=== PATIENT | female | born 1965 | race Caucasian/White ===

== ENCOUNTER 2016-06-02 06:14 | Emergency (ER) | payer BC ==
[~2016-06-02] VITALS: Ht 154.9 cm; Wt 94.8 kg
[~2016-06-02 06:14] MED LIST: AZIT250T PO; BUPR150T8; PARO-18 PO
[2016-06-02 06:16] VITALS: Ht 154.9 cm; Wt 94.8 kg
--- OUTSIDE RECORDS SUMMARY | 2016-06-02 06:17 | XMS REPORT | Referral Summary ---
Author Author [facility] Organization [facility] Address Unknown Phone Unavailable Care Team Providers Care Educational Manager Name Role Phone Akbar Drummond Primary Care Physician [phone] Encounter Date(s): 12/12/15 - 12/12/15 [facility] [address] [place] [address] Discharge Diagnosis: Chronic pain of right knee Discharge Diagnosis: Physical exam, pre-employment Discharge Diagnosis: Anxiety and depression Discharge Diagnosis: Screening for tuberculosis Discharge Disposition: 01-Home or Self Care Attending Physician: Mary Zaldivar PA-C Admitting Physician: Mary Zaldivar PA-C Vital Signs Most recent to 1 oldest [Reference Range]: Peripheral Pulse 64 bpm Rate [60-100 bpm] (12/12/15 4:11 PM) Respiratory Rate 18 br/min [14-20 br/min] (12/12/15 4:11 PM) Blood Pressure 122/82 mmHg [90-140/60-90 mmHg] (12/12/15 4:11 PM) Problem List Condition Effective Dates Status Health Status Informant Acute bacterial Active bronchitis(Confirmed ) Acute bacterial Active sinusitis(Confirmed) Benign essential Active hypertension(Confirm ed) Esotropia(Confirmed) Active high Resolved cholesterol(Confirme d) Hyperlipidemia(Confi Active rmed) hypertension(Confirm Resolved ed) Anxiety and Active depression(Confirmed ) Obesity(Confirmed) Active patient Patellofemoral Active syndrome(Confirmed) Allergies, Adverse Reactions, Alerts Substance Reaction Severity Status lisinopril Active PARoxetine Hydrochloride Active Medications Multiple Vitamins oral tablet, chewable 1 tabs, Chewed, Daily, # 100 tabs, 0 Refill(s) Start Date: 08/23/14 Status: Ordered Wellbutrin Oral, 0 Refill(s) Start Date: 11/15/15 Status: Ordered Results No data available for this section Immunizations Vaccine Date Refusal Reason influenza virus vaccine, inactivated1 11/29/13 influenza virus vaccine, live 01/14/13 pneumococcal 23-polyvalent vaccine 11/22/10 tetanus/diphtheria/pertussis, acel(Tdap) 03/30/09 1Result Comment: [11/29/2013] see scanned document Procedures No data available for this section Social History Social History Type Response Smoking Status Never smoker Assessment and Plan Extracted from: Title: Office Visit Note- Author: Mary Zaldivar PA-C Date: 12/12/15 Pre-employment physical Assessment/Plan Anxiety and depression This condition is stable at this time. No restrictions. Ordered: Periodic Comp Preventive Med 40 to 64 years Est 69028 Chronic pain of right knee D/w pt that I can inject the knee with a steroid if she would like. Can make another appt for this. Ordered: Periodic Comp Preventive Med 40 to 64 years Est 77303 Physical exam, pre-employment Paperwork was filled out.Pt is cleared for employment pending PPD test. Ordered: Periodic Comp Preventive Med 40 to 64 years Est 69373 Screening for tuberculosis PPDgiven today. She is to [facility] 48 hours to read. Ordered: Periodic Comp Preventive Med 40 to 64 years Est 13262
--- OUTSIDE RECORDS SUMMARY | 2016-06-02 06:17 | XMS REPORT | Referral Summary ---
Author Author [facility] Organization [facility] Address Unknown Phone Unavailable Care Team Providers Care Intern Name Role Phone Akbar Drummond Primary Care Physician [phone] Encounter VC Date(s): 01/11/16 - 01/11/16 [facility] [address] [place] [address] Discharge Diagnosis: Right knee pain Discharge Disposition: 01-Home or Self Care Attending Physician: Mary Zaldivar PA-C Admitting Physician: Mary Zaldivar PA-C Vital Signs Most recent to 1 oldest [Reference Range]: Peripheral Pulse 80 bpm Rate [60-100 bpm] (01/11/16 4:05 PM) Respiratory Rate 18 br/min [14-20 br/min] (01/11/16 4:05 PM) Blood Pressure 146/82 mmHg [90-140/60-90 mmHg] *HI* (01/11/16 4:05 PM) Problem List Condition Effective Dates Status [...] vaccine, inactivated1 11/29/13 influenza virus vaccine, live 12/6/13 pneumococcal 23-polyvalent vaccine 11/22/10 tetanus/diphtheria/pertussis, acel(Tdap) 03/30/09 1Result Comment: [11/29/2013] see scanned document Procedures Procedure Date Related Diagnosis Body Site Arthrocentesis, aspiration and/or injection, 01/11/16 major joint or bursa (eg, shoulder, hip, knee, subacromial bursa); without ultrasound guidance Social History Social History Type Response Smoking Status Never smoker Assessment and Plan Extracted from: Title: Office Visit Note- R knee Author: Mary Zaldivar PA-C Date: 01/11/16 inj Assessment/Plan Right knee pain Knee injection today. Pt advised to let me know if the injection does not help with the pain. The joint space was very small. Could try PT or get MRI. If this helps with pain, then can come back in to clinic in 3 months for another injection. Ordered: Arthro/Asp Major Joint Inj (Shoulder, Hip, Knee) 88783
--- OUTSIDE RECORDS SUMMARY | 2016-06-02 06:17 | XMS REPORT | Referral Summary ---
Author Author [facility] Organization [facility] Address Unknown Phone Unavailable Care Team Providers Care Wood Miller Name Role Phone Mariaelena Manjarrez Primary Care Physician [phone] Encounter VC Date(s): 08/30/14 - 08/30/14 [facility] [address] [place] [address] Discharge Disposition: 01-Home or Self Care Attending Physician: Juan Adair MD Admitting Physician: Juan Adair MD Vital Signs Most recent to 1 oldest [Reference Range]: Temperature Tympanic 37.6 degC [36.6-38.1 degC] (08/30/14 1:49 PM) Peripheral Pulse 88 bpm Rate [60-100 bpm] (08/30/14 1:49 PM) Respiratory Rate 18 br/min [14-20 br/min] (08/30/14 1:49 PM) Blood Pressure 126/80 mmHg [90-140/60-90 mmHg] (08/30/14 1:49 PM) Problem List Condition Effective Dates Status Health Status Informant Acute bacterial Active bronchitis(Confirmed ) Acute bacterial Active sinusitis(Confirmed) high Resolved cholesterol(Confirme d) hypertension(Confirm Resolved ed) Anxiety and Active depression(Confirmed ) Obesity(Confirmed) Active patient Allergies, Adverse Reactions, Alerts Substance Reaction Severity Status lisinopril Active PARoxetine Hydrochloride Active Medications buPROPion 150 mg/12 hours (SR) oral tablet, extended release See Instructions, TAKE ONE TABLET BY MOUTH TWICE DAILY, # 60 tabs, eRx: [id number], TAKE ONE TABLET BY MOUTH TWICE DAILY Start Date: 01/29/15 Status: Ordered Multiple Vitamins oral tablet, chewable 1 tabs, Chewed, Daily, # 100 tabs, 0 Refill(s) Start Date: 08/23/14 Status: Ordered omeprazole 20 mg oral delayed release tablet 20 mg 1 tabs, Oral, Daily, # 30 tabs, 1 Refill(s), Pharmacy: [id number], 1 tabs Oral Daily,x30 days Start Date: 08/30/14 Stop Date: 10/29/14 Status: Ordered Results No data available for this section Immunizations Vaccine Date Refusal Reason influenza virus vaccine, inactivated1 11/29/13 influenza virus vaccine, live 01/14/13 pneumococcal 23-polyvalent vaccine 11/22/10 tetanus/diphtheria/pertussis, acel(Tdap) 03/30/09 1Result Comment: [11/29/2013] see scanned document Procedures No data available for this section Social History Social History Type Response Smoking Status Never smoker Assessment and Plan Extracted from: Title: Office Visit Note Author: Juan Adair MD Date: 08/30/14 Assessment/Plan Chronic cough Plan: I am going to place U on Flonase one squirt each nostril daily.I am going to place you on omeprazole 20 mg daily. I want you to see Dr. Schmidt. I think at this point since Dulera has not improved her symptoms you can discontinue that. Orders: fluticasone nasal, 1 sprays, Nasal, BID, # 16 g, 1 Refill(s), Pharmacy : [id number] omeprazole, 20 mg 1 tabs, Oral, Daily, # 30 tabs, 1 Refill(s), Pharmacy: [facility], 1 tabs Oral Daily,x30 days
--- OUTSIDE RECORDS SUMMARY | 2016-06-02 06:17 | XMS REPORT | Continuity of Care Document ---
Author Author [facility] Organization [facility] Address Unknown Phone Unavailable Allergies Medications Problems Procedures Results Encounters ACCT No. Visit Date/Time Discharge Status Pt. Type Provider Facility Loc./Unit Complaint [id number] 04/07/2013 10:32:00 04/07/2013 23 :59:59 CLS Outpatient [id number] 04/01/2013 15:22:00 04/01/2013 23 :59:59 CLS Outpatient [id number] 01/14/2013 14:27:00 01/14/2013 23 :59:59 CLS Outpatient
--- OUTSIDE RECORDS SUMMARY | 2016-06-02 06:17 | XMS REPORT | Referral Summary ---
Author Author [facility] Organization [facility] Address Unknown Phone Unavailable Care Team Providers Care Conditioning Coach Name Role Phone BessytuAkbar guy Primary Care Physician [phone] Encounter VC Date(s): 12/06/14 - 12/06/14 [facility] [address] [place] [address] Discharge Diagnosis: Acute bacterial sinusitis Discharge Disposition: 01-Home or Self Care Attending Physician: Georgina Walton APRN Admitting Physician: Georgina Walton APRN Vital Signs Most recent to 1 oldest [Reference Range]: Temperature Tympanic 37.6 degC [36.6-38.1 degC] (12/06/14 1:45 PM) Peripheral Pulse 96 bpm Rate [60-100 bpm] (12/06/14 1:45 PM) Blood Pressure 138/84 mmHg [90-140/60-90 mmHg] (12/06/14 1:45 PM) Problem List Condition Effective Dates Status [...] mg/12 hours (SR) oral tablet, extended release 150 mg 1 tabs, Oral, BID, X 90 days, # 180 tabs, 1 Refill(s), Pharmacy: [id number], 1 tabs Oral BID,x90 days Start Date: 04/13/15 Stop Date: 10/10/15 Status: Ordered Multiple Vitamins oral tablet, chewable 1 tabs, Chewed, Daily, # 100 tabs, 0 Refill(s) Start Date: 08/23/14 Status: Ordered ProAir RespiClick 90 mcg/inh inhalation powder 2 puffs, Inhalation, q4hr, # 1 Each, 0 Refill(s), Pharmacy: [id number] Start Date: 04/13/15 Status: Ordered promethazine-codeine 6.25 mg-10 mg/5 mL oral syrup 5 mL, Oral, q6hr, as needed for cough, Fax to [facility], # 120 mL, 0 Refill(s) Start Date: 06/07/15 Status: Ordered Results No data available for this section Immunizations Vaccine Date Refusal Reason influenza virus vaccine, inactivated1 11/29/13 influenza virus vaccine, live 01/14/13 pneumococcal 23-polyvalent vaccine 11/22/10 tetanus/diphtheria/pertussis, acel(Tdap) 03/30/09 1Result Comment: [11/29/2013] see scanned document Procedures No data available for this section Social History Social History Type Response Smoking Status Never smoker Assessment and Plan Extracted from: Title: Office Visit Note-sinusitis Author: Georgina Walton DUCT CLEANER Date: 12/06/14 Assessment/Plan Acute bacterial sinusitis Patient counseled regarding diagnosis, natural history, pathophysiology, typical treatment, and expected results. Questions and concerns answered. There is no overlying erythema to suggest an associated cellulitis or abscess formation. Take antibiotics till complete. Mucinex twice a day as needed. Saline or Jose med nasal rinses twice a day may be helpful. Tylenol per package instructions for comfort. Afrin nasal spray twice a day x 3 days as needed may help open nasal passages Notify office if symptoms fail to improve. Ordered: Office Visit Level 3 Est 65589 Orders: amoxicillin-clavulanate, 1 tabs, Oral, q12hr, X 14 days, # 28 tabs, 0 Refill(s), Pharmacy: [id number]
--- OUTSIDE RECORDS SUMMARY | 2016-06-02 06:17 | XMS REPORT | Referral Summary ---
Author Author [facility] Organization [facility] Address Unknown Phone Unavailable Care Team Providers Care Marine Gear Keeper Name Role Phone Mariaelena Manjarrez Primary Care Physician [phone] Encounter Date(s): 04/03/15 - 04/03/15 [facility] [address] [place] [address] Discharge Diagnosis: Acute bacterial bronchitis Discharge Disposition: 01-Home or Self Care Attending Physician: Georgina Walton APRN Admitting Physician: Georgina Walton APRN Vital Signs Most recent to 1 oldest [Reference Range]: Temperature Tympanic 37.6 degC [36.6-38.1 degC] (04/03/15 2:34 PM) Apical Heart Rate 80 bpm [60-100 bpm] (04/03/15 2:34 PM) Blood Pressure 124/86 mmHg [90-140/60-90 mmHg] (04/03/15 2:34 PM) Problem List Condition Effective Dates Status [...] MOUTH TWICE DAILY, # 60 tabs, eRx: [id number], TAKE ONE TABLET BY MOUTH TWICE DAILY Start Date: 01/29/15 Status: Ordered Multiple Vitamins oral tablet, chewable 1 tabs, Chewed, Daily, # 100 tabs, 0 Refill(s) Start Date: 08/23/14 Status: Ordered Zithromax Z-Beka 250 mg oral tablet 1 packets, Oral, Daily, as directed on package labeling, X 5 days, # 6 tabs, 0 Refill(s), [facility], 1 packets Oral Daily,x5 days,Instr: as directed on package labeling Start Date: 04/03/15 Stop Date: 04/08/15 Status: Ordered Results No data available for this section Immunizations Vaccine Date Refusal Reason influenza virus vaccine, inactivated1 11/29/13 influenza virus vaccine, live 01/14/13 pneumococcal 23-polyvalent vaccine 11/22/10 tetanus/diphtheria/pertussis, acel(Tdap) 03/30/09 1Result Comment: [11/29/2013] see scanned document Procedures No data available for this section Social History Social History Type Response Smoking Status Never smoker Assessment and Plan Extracted from: Title: Office Visit Note-bronchitis Author: Georgina Walton APRN Date: 04/03/15 Assessment/Plan Acute bacterial bronchitis Zithromax 2 tabs today, then one tablet daily for 4 days. Increase fluid intake. Enc good handwashing. Recommend OTC mucinex per package instruction. Recommend OTC Tylenol and/or Ibuprofen per package instructions as needed for fever, pain, and body aches. No aspirin. Symptoms should improve over the next 1-2 weeks. If symptoms get worse, spikes fever, inc cough or shortness of breath to notify the office for further evaluation. I do not feel that any further extensive workup is indicated. However the patient is counseled that should new symptoms develop or the symptoms worsen, further evaluation and testing may be warranted as those symptoms declare themselves and that followup is of vital importance. Excuse note provided. Patient off work April 02 through April 04. Ordered: Office Visit Level 3 Est 20057 Orders: azithromycin, 1 packets, Oral, Daily, as directed on package labeling , X 5 days, # 6 tabs, 0 Refill(s), Pharmacy: [id number], 1 packets Oral Daily,x5 days,Instr:as directed on package labeling
--- OUTSIDE RECORDS SUMMARY | 2016-06-02 06:17 | XMS REPORT | Referral Summary ---
Author Author [facility] Organization [facility] Address Unknown Phone Unavailable Care Team Providers Care Rail Maintenance Worker Name Role Phone Akbar Drummond Primary Care Physician [phone] Encounter VC Date(s): 08/24/15 - 08/24/15 [facility] [address] [place] [address] Discharge Disposition: 01-Home or Self Care Attending Physician: Agustin Drummond MD Admitting Physician: Agustin Drumomnd MD Vital Signs Most recent to 1 oldest [Reference Range]: Blood Pressure 120/90 mmHg [90-140/60-90 mmHg] (08/24/15 1:32 PM) Problem List Condition Effective Dates Status [...] days, # 180 tabs, 1 Refill(s), Pharmacy: [id number], 1 tabs Oral BID,x90 days Start Date: 04/13/15 Stop Date: 10/10/15 Status: Ordered Multiple Vitamins oral tablet, chewable 1 tabs, Chewed, Daily, # 100 tabs, 0 Refill(s) Start Date: 08/23/14 Status: Ordered Physical therapy Physical therapy, See Instructions, Eval and treat as indicated for right knee pain., # 1 Each, 0 Refill(s) Start Date: 08/24/15 Status: Ordered Results No data available for this section Immunizations Vaccine Date Refusal Reason influenza virus vaccine, inactivated1 11/29/13 influenza virus vaccine, live 01/14/13 pneumococcal 23-polyvalent vaccine 11/22/10 tetanus/diphtheria/pertussis, acel(Tdap) 03/30/09 1Result Comment: [11/29/2013] see scanned document Procedures No data available for this section Social History Social History Type Response Smoking Status Never smoker Assessment and Plan Extracted from: Title: Ambulatory Patient Education Author: Agustin Drummond MD Date: Family Medicine Cholesterol Cholesterol is a white, waxy, fat-like substance needed by your body in small amounts. The liver makes all the cholesterol you need. Cholesterol is carried from the liver by the blood through the blood vessels. Deposits of cholesterol ( plaque) may build up on blood vessel elliott. These make the arteries narrower and stiffer. Cholesterol plaques increase the risk for heart attack and stroke. You cannot feel your cholesterol level even if it is very high. The only way to know it is high is with a blood test. Once you know your cholesterol levels, you should keep a record of the test results. Work with your health care provider to keep your levels in the desired range. WHAT DO THE RESULTS MEAN? Total cholesterol is a rough measure of all the cholesterol in your blood. LDL is the so-called bad cholesterol. This is the type that deposits cholesterol in the elliott of the arteries. You want this level to be low. HDL is the good cholesterol because it cleans the arteries and carries the LDL away. You want this level to be high. Triglycerides are fat that the body can either burn for energy or store. High levels are closely linked to heart disease. WHAT ARE THE DESIRED LEVELS OF CHOLESTEROL? Total cholesterol below 200. LDL below 100 for people at risk, below 70 for those at very high risk. HDL above 50 is good, above 60 is best. Triglycerides below 150. HOW CAN I LOWER MY CHOLESTEROL? Diet. Follow your diet programs as directed by your health care provider. Choose fish or white meat chicken and turkey, roasted or baked. Limit fatty cuts of red meat, fried foods, and processed meats, such as sausage and lunch meats. Eat lots of fresh fruits and vegetables. Choose whole grains, beans, pasta, potatoes, and cereals. Use only small amounts of olive, corn, or canola oils. Avoid butter, mayonnaise, shortening, or palm kernel oils. Avoid foods with trans fats. Drink skim or nonfat milk and eat low-fat or nonfat yogurt and cheeses. Avoid whole milk, cream, ice cream, egg yolks, and full-fat cheeses. Healthy desserts include tish food cake, thony snaps, animal crackers, hard candy, popsicles, and low-fat or nonfat frozen yogurt. Avoid pastries, cakes, pies, and cookies. Exercise. Follow your exercise programs as directed by your health care provider. A regular program helps decrease LDL and raise HDL. A regular program helps with weight control. Do things that increase your activity level like gardening, walking, or taking the stairs. Ask your health care provider about how you can be more active in your daily life. Medicine. Take medicine only as directed by your health care provider. Medicine may be prescribed by your health care provider to help lower cholesterol and decrease the risk for heart disease. If you have several risk factors, you may need medicine even if your levels are normal. This information is not intended to replace advice given to you by your health care provider. Make sure you discuss any questions you have with your health care provider. Document Released: 10/21/2001 Document Revised: 02/16/2015 Document Reviewed: [employer] Patient Information 2016 [employer]. No follow up information was provided. Extracted from: Title: Office Visit Note Author: Agustin Drummond MD Date: 08/24/15 Assessment/Plan Anxiety and depression This issue was reviewed, appears stable, and current therapy continued except as mentioned. Appropriate lab was reviewed from the most recent appropriate entry and lab was ordered if needed in the cpoe/nursing orders, and follow up recommended generally in 90 days and no later then six months. Benign essential hypertension This issue was reviewed, appears stable, and current therapy continued except as mentioned. Appropriate lab was reviewed from the most recent appropriate entry and lab was ordered if needed in the cpoe /nursing orders, and follow up recommended generally in 90 days and no later then six months. The patient reports their blood pressure has been stable at home and is not having any significant or related problems. There has been no chest pain, chest pressure, soa/love. IMPRESSION: Central reactive airway changes such as bronchitis with some minimal perihilar and bibasilar atelectatic infiltrates but no significant consolidations. [1] Hyperlipidemia This issue was reviewed, appears stable, and current therapy continued except as mentioned. Appropriate lab was reviewed from the most recent appropriate entry and lab was ordered if needed in the cpoe/nursing orders, and follow up recommended generally in 90 days and no later then six months. Knee pain Xray pending. Mobic 7.5mg po bid prn. Physical therapy script given and hand out given. The patient was offered and/or directed to a specialist for this issue. The patient refused or at least deferred any referral at this time. Ordered: XR Knee Complete Right Obesity Diet and exercise as tolerated and feasible. Consider medication when interested. Patellofemoral syndrome See above. Orders: Misc Medication, Physical therapy, See Instructions, Eval and treat as indicated for right knee pain., # 1 Each, 0 Refill(s)
--- OUTSIDE RECORDS SUMMARY | 2016-06-02 06:17 | XMS REPORT | Referral Summary ---
Author Author [facility] Organization [facility] Address Unknown Phone Unavailable Care Team Providers Care Instrument Man Name Role Phone Mariaelena Manjarrez Primary Care Physician [phone] Encounter VC Date(s): 08/23/14 - 08/23/14 [facility] [address] [place] [id number] Discharge Disposition: 01-Home or Self Care Attending Physician: Juan Adair MD Admitting Physician: Juan Adair MD Vital Signs Most recent to 1 oldest [Reference Range]: Temperature Tympanic 36.7 degC [36.6-38.1 degC] (08/23/14 10:30 AM) Peripheral Pulse 88 bpm Rate [60-100 bpm] (08/23/14 10:30 AM) Respiratory Rate 20 br/min [14-20 br/min] (08/23/14 10:30 AM) Blood Pressure 122/86 mmHg [90-140/60-90 mmHg] (08/23/14 10:30 AM) Problem List Condition Effective Dates Status Health [...] MOUTH TWICE DAILY, # 60 tabs, eRx: [id number], TAKE ONE TABLET BY MOUTH TWICE DAILY Start Date: 01/29/15 Status: Ordered Multiple Vitamins oral tablet, chewable 1 tabs, Chewed, Daily, # 100 tabs, 0 Refill(s) Start Date: 08/23/14 Status: Ordered omeprazole 20 mg oral delayed release tablet 20 mg 1 tabs, Oral, Daily, # 30 tabs, 1 Refill(s), Pharmacy: [id number], 1 tabs Oral Daily,x30 days Start Date: 08/30/14 Stop Date: 10/29/14 Status: Ordered Results Hematology Most recent to 1 oldest [Reference Range]: WBC [4.8-10.8 6.4 10*3/uL 10*3/uL] (08/23/14 11:03 AM) RBC [4.00-5.20 4.04 10*6/uL 10*6/uL] (08/23/14 11:03 AM) Hgb [12.0-16.0 11.8 gm/dL gm/dL] *LOW* (08/23/14: AM) Hct [37.0-47.0 %] 37.0 % (08/23/14 11:03 AM) MCV [82.0-99.0 fL] 91.6 fL (08/23/14: AM) MCH [27.0-32.0 pg] 29.2 pg (08/23/14:03 AM) MCHC [32.0-36.0 31.9 gm/dL gm/dL] *LOW* (08/23/14: AM) RDW [11.5-14.5 %] 14.0 % (08/23/14 11:03 AM) Platelet [150-400 210 10*3/uL 10*3/uL] (08/23/14 11:03 AM) MPV [8.8-14.8 fL] 12.9 fL (08/23/14 11:03 AM) Immature 0.2 % Granulocytes (08/23/14:03 AM) [0.0-1.0 %] Neutrophils [51-75 57 % %] (08/23/14 11:03 AM) Lymphocytes [20-46 29 % %] (08/23/14 11:03 AM) Monocytes [4-11 %] 8 % (08/23/14 11:03 AM) Eosinophils [0-4 %] 5 % *HI* (08/23/14: AM) Basophils [0-2 %] 1 % (08/23/14 11:03 AM) Neutro Absolute 3.62 10*3 [1.90-7.00 10*3] (08/23/14 11:03 AM) Lymph Absolute 1.89 10*3 [0.80-3.30 10*3] (08/23/14 11:03 AM) Schley Absolute 0.51 10*3 [0.30-1.00 10*3] (08/23/14 11:03 AM) Eos Absolute 0.33 10*3 [0.00-0.50 10*3] (08/23/14 11:03 AM) Baso Absolute 0.06 10*3 [0.00-0.20 10*3] (08/23/14 11:03 AM) Chemistry Most recent to 1 oldest [Reference Range]: TSH with Reflex Free 1.89 T4 [0.35-4.94] (08/23/14 11:03 AM) Immunizations Vaccine Date Refusal Reason influenza virus vaccine, inactivated1 11/29/13 influenza virus vaccine, live 01/14/13 pneumococcal 23-polyvalent vaccine 11/22/10 tetanus/diphtheria/pertussis, acel(Tdap) 03/30/09 1Result Comment: [11/29/2013] see scanned document Procedures Procedure Date Related Diagnosis Body Site Collection of venous blood by venipuncture 08/23/14 Social History Social History Type Response Smoking Status Never smoker Assessment and Plan Extracted from: Title: Office Visit Note Author: Juan Adair MD Date: 08/23/14 Assessment/Plan Cough Ordered: CBC w/ Differential XR Chest 2 Views Fatigue Plan: I gave you a sample of Dulera 100/5 to take 2 puffs twice a day. I'm also placing you on a prednisone taper. I wants to follow-up in one week. I ordered a CBC and lab. I will review that more morning. Ordered: TSH with Reflex Free T4 Orders: predniSONE, See Instructions, Take 6 tabs on day one and then decrease by one tablet daily until gone., # 21 tabs, 0 Refill(s), Pharmacy: [id number], Take 6 tabs on day one and then decrease by one tablet daily until gone.
--- OUTSIDE RECORDS SUMMARY | 2016-06-02 06:17 | XMS REPORT | Referral Summary ---
Author Organization Unknown Address Unknown Phone Unavailable Care Team Providers Care Library Page Name Role Phone Kitty Adair Primary Care Physician [phone] Encounter VC Date(s): 04/03/14 - 04/03/14 [facility] [address] [place] [address] Dr [place] [id number] Discharge Diagnosis: Sinusitis Discharge Disposition: Home or Self Care Attending Physician: Georgina Walton APRN Admitting Physician: Georgina Walton APRN Vital Signs Most recent to 1 oldest [Reference Range]: Temperature Tympanic 37.1 degC [36.6-38.1 degC] (04/03/14 3:30 PM) Peripheral Pulse 84 bpm Rate [60-100 bpm] (04/03/14 3:30 PM) Respiratory Rate 24 br/min [14-20 br/min] *HI* (04/03/14 3:30 PM) Blood Pressure 112/84 mmHg [90-140/60-90 mmHg] (04/03/14 3:30 PM) Problem List Condition Effective Dates Status Health Status Informant high Resolved cholesterol(Confirme d) hypertension(Confirm Resolved ed) Anxiety and Active depression(Confirmed ) Obesity(Confirmed) Active patient Allergies, Adverse Reactions, Alerts Substance Reaction Severity Status lisinopril Active PARoxetine Hydrochloride Active Medications Augmentin 875 mg-125 mg oral tablet 1 tabs, Oral, q12hr, X 14 days, # 28 tabs, 0 Refill(s), Pharmacy: [facility] Start Date: 04/03/14 Stop Date: 04/17/14 Status: Ordered buPROPion 150 mg/12 hours (SR) oral tablet, extended release See Instructions, TAKE ONE TABLET BY MOUTH TWICE DAILY, # 60 tabs, 3 Refill(s), eRx: [facility], TAKE ONE TABLET BY MOUTH TWICE DAILY Special Instructions: TAKE ONE TABLET BY MOUTH TWICE DAILY Start Date: 09/13/13 Status: Ordered Results No data available for [...] Extracted from: Title: Office Visit Note Author: Georgina Walton FOOD GENERAL MANAGER Date: 04/03/14 Assessment/Plan 1.Sinusitis Patient counseled regarding diagnosis, natural history, pathophysiology, typical treatment, and expected results. Questions and concerns answered. There is no overlying erythema to suggest an associated cellulitis or abscess formation. This does not appear to be originating from the teeth. There is no recent history of nasotracheal intubation to suggest a nosocomial sinusitis. The patient does not have disproportionate pain and is not immunocompromised or lethargic or systemically ill appearing to suggest rhinocerebral mucormycosis. The patient's discomfort and clinical findings are compatible with a diagnosis of sinusitis and not that of a subarachnoid hemorrhage or meningitis or temporal arteritis. Take antibiotics till complete. Mucinex twice a day as needed. Saline or Jose med nasal rinses twice a day may be helpful. Tylenol per package instructions for comfort. Afrin nasal spray twice a day x 3 days as needed may help open nasal passages Notify office if symptoms fail to improve. Ordered: Office Visit Level 3 Est 12202 Orders: amoxicillin-clavulanate, 1 tabs, Oral, q12hr, X 14 days, # 28 tabs, 0 Refill(s), Pharmacy: [id number]
--- OUTSIDE RECORDS SUMMARY | 2016-06-02 06:17 | XMS REPORT | Referral Summary ---
Author Author [facility] Organization [facility] Address Unknown Phone Unavailable Care Team Providers Care Material Clerk Name Role Phone Akbar Drummond Primary Care Physician [phone] Encounter VC Date(s): 04/13/15 - 04/13/15 [facility] [address] [place] [address] Discharge Disposition: 01-Home or Self Care Attending Physician: Agustin Drummond MD Admitting Physician: Agustin Drummond MD Vital Signs Most recent to 1 oldest [Reference Range]: Blood Pressure 140/90 mmHg [90-140/60-90 mmHg] (04/13/15 2:03 PM) Problem List Condition Effective Dates Status [...] days, # 180 tabs, 1 Refill(s), Pharmacy: [facility], 1 tabs Oral BID,x90 days Start Date: 04/13/15 Stop Date: 10/10/15 Status: Ordered Multiple Vitamins oral tablet, chewable 1 tabs, Chewed, Daily, # 100 tabs, 0 Refill(s) Start Date: 08/23/14 Status: Ordered ProAir RespiClick 90 mcg/inh inhalation powder 2 puffs, Inhalation, q4hr, # 1 Each, 0 Refill(s), Pharmacy: [facility] Start Date: 04/13/15 Status: Ordered Results No data available for [...] Patient Education Author: Agustin Drummond MD Date: 04/13/15 Allergy Cough, Adult A cough is a reflex that helps clear your throat and airways. It can help heal the body or may be a reaction to an irritated airway. A cough may only last 2 or 3 weeks (acute) or may last more than 8 weeks (chronic). CAUSES Acute cough: Viral or bacterial infections. Chronic cough: Infections. Allergies. Asthma. Post-nasal drip. Smoking. Heartburn or acid reflux. Some medicines. Chronic lung problems (COPD). Cancer. SYMPTOMS Cough. Fever. Chest pain. Increased breathing rate. High-pitched whistling sound when breathing (wheezing). Colored mucus that you cough up (sputum). TREATMENT A bacterial cough may be treated with antibiotic medicine. A viral cough must run its course and will not respond to antibiotics. Your caregiver may recommend other treatments if you have a chronic cough. HOME CARE INSTRUCTIONS Only take fhzx-ief-hyifump or prescription medicines for pain, discomfort , or fever as directed by your caregiver. Use cough suppressants only as directed by your caregiver. Use a cold steam vaporizer or humidifier in your bedroom or home to help loosen secretions. Sleep in a semi-upright position if your cough is worse at night. Rest as needed. Stop smoking if you smoke. SEEK IMMEDIATE MEDICAL CARE IF: You have pus in your sputum. Your cough starts to worsen. You cannot control your cough with suppressants and are losing sleep. You begin coughing up blood. You have difficulty breathing. You develop pain which is getting worse or is uncontrolled with medicine. You have a fever. MAKE SURE YOU: Understand these instructions. Will watch your condition. Will get help right away if you are not doing well or get worse. This information is not intended to replace advice given to you by your health care provider. Make sure you discuss any questions you have with your health care provider. Document Released: 07/25/2011 Document Revised: 04/19/2012 Document Reviewed: [employer] Patient Information 2015 [employer]. No follow up information was provided. Extracted from: Title: Office Visit Note Author: Agustin Drummond MD Date: 04/13/15 Assessment/Plan Anxiety and depression This issue was reviewed, appears stable, and current therapy continued except as mentioned. Appropriate lab was reviewed from the most recent appropriate entry and lab was ordered if needed in the cpoe/nursing orders, and follow up recommended generally in 90 days and no later then six months. Refill meds. Benign essential hypertension The patient's issue is nearly or completely resolved. There is no further issues or testing desired by them at this time. The patient had an elevated blood pressure reading and is to monitor their bp and call with a report if consistently > 140/90. Cough Samples of the new medication were provided as a courtesy. Side effects were discussed and follow up was recommended. Trial of proair two puffs q6 prn, voucher and demo given. Esotropia The patient's issue is nearly or completely resolved. There is no further issues or testing desired by them at this time. A work/school note was offered and deferred by the patient. Hyperlipidemia This issue was reviewed, appears stable, and current therapy continued except as mentioned. Appropriate lab was reviewed from the most recent appropriate entry and lab was ordered if needed in the cpoe/nursing orders, and follow up recommended generally in 90 days and no later then six months. We discussed several options for treatment for this condition. The patient declined any changes or other treatments at this time. Lab with [facility] when willing. Obesity Diet and exercise as tolerated and feasible. Consider medication when interested. Orders: albuterol, 2 puffs, Inhalation, q4hr, # 1 Each, 0 Refill(s), Pharmacy : [facility] buPROPion, 150 mg 1 tabs, Oral, BID, X 90 days, # 180 tabs, 1 Refill(s), Pharmacy: [facility], 1 tabs Oral BID,x90 days
--- OUTSIDE RECORDS SUMMARY | 2016-06-02 06:18 | XMS REPORT | Referral Summary ---
Author Author [facility] Organization [facility] Address Unknown Phone Unavailable Care Team Providers Care Visual And Stock Associate Name Role Phone Kitty Adair Primary Care Physician [phone] Encounter VC Date(s): 12/06/14 - 12/06/14 [facility] [address] [place] [address] Discharge Diagnosis: Acute bacterial sinusitis [...] days, # 28 tabs, 0 Refill(s), Pharmacy: [facility] Start Date: 12/06/14 Stop Date: 12/20/14 Status: Ordered buPROPion 150 mg/12 hours (SR) oral tablet, extended release See Instructions, TAKE ONE TABLET BY MOUTH TWICE DAILY, # 60 tabs, eRx: [facility], TAKE ONE TABLET BY MOUTH TWICE DAILY Start Date: 12/04/14 Status: Ordered Multiple Vitamins oral tablet, chewable 1 tabs, Chewed, Daily, # 100 tabs, 0 Refill(s) Start Date: 08/23/14 Status: Ordered omeprazole 20 mg oral delayed release tablet 20 mg 1 tabs, Oral, Daily, # 30 tabs, 1 Refill(s), Pharmacy: [facility], 1 tabs Oral Daily,x30 [...] Title: Office Visit Note-sinusitis Author: Georgina Walton DITCH DIGGER Date: 12/06/14 Assessment/Plan Acute bacterial sinusitis Patient [...] improve. Ordered: Office Visit Level 3 Est 35472 Orders: amoxicillin-clavulanate, 1 tabs, Oral, q12hr, X 14 days, # 28 tabs, 0 Refill(s), Pharmacy: [id number]
--- OUTSIDE RECORDS SUMMARY | 2016-06-02 06:18 | XMS REPORT | Referral Summary ---
Author Author [facility] Organization [facility] Address Unknown Phone Unavailable Care Team Providers Care Shot Lighter Name Role Phone Akbar Drummond Primary Care Physician [phone] Encounter Date(s): 06/07/15 - 06/07/15 [facility] [address] [place] [address] Discharge Diagnosis: Costochondritis Discharge Diagnosis: Cough Discharge Diagnosis: Chest pain Discharge Diagnosis: Acute bronchitis Discharge Disposition: 01-Home or Self Care Attending Physician: Mary Zaldivar PA-C Admitting Physician: Mary Zaldivar PA-C Vital Signs Most recent to 1 oldest [Reference Range]: Temperature Tympanic 37.2 degC [36.6-38.1 degC] (06/07/15 1:49 PM) Peripheral Pulse 103 bpm Rate [60-100 bpm] *HI* (06/07/15 1:49 PM) Blood Pressure 130/85 mmHg [90-140/60-90 mmHg] (06/07/15 1:49 PM) SpO2 98 % (06/07/15 1:49 PM) Problem List Condition Effective Dates [...] days, # 180 tabs, 1 Refill(s), Pharmacy: [facility], 1 tabs Oral BID,x90 days Start Date: 04/13/15 Stop Date: 10/10/15 Status: Ordered Multiple Vitamins oral tablet, chewable 1 tabs, Chewed, Daily, # 100 tabs, 0 Refill(s) Start Date: 08/23/14 Status: Ordered predniSONE 20 mg oral tablet 40 mg 2 tabs, Oral, Daily, X 5 days, # 10 tabs, 0 Refill(s), Pharmacy: [facility], 2 tabs Oral Daily,x5 days Start Date: 06/07/15 Stop Date: 06/12/15 Status: Ordered ProAir RespiClick 90 mcg/inh inhalation powder 2 puffs, Inhalation, q4hr, # 1 Each, 0 Refill(s), Pharmacy: [facility] Start Date: 04/13/15 Status: Ordered promethazine-codeine 6.25 mg-10 mg/5 mL oral syrup 5 mL, Oral, q6hr, as needed for cough, Fax to [facility], # 120 mL, 0 Refill(s) Start Date: [...] Extracted from: Title: Ambulatory Patient Education Author: Mary Zaldivar PA-C Date : 06/07/15 Allergy Cough, Adult A cough is a [...] chronic cough. HOME CARE INSTRUCTIONS Only take nqht-jja-fnevxwp or prescription medicines for pain, discomfort , [...] Released: 07/25/2011 Document Revised: 04/19/2012 Document Reviewed: [facility] Patient Information 2015 [place] [employer]. Cardiovascular Chest Wall Pain Chest wall pain is pain in or around the bones and muscles of your chest. It may take up to 6 weeks to get better. It may take longer if you must stay physically active in your work and activities. CAUSES Chest wall pain may happen on its own. However, it may be caused by: A viral illness like the flu. Injury. Coughing. Exercise. Arthritis. Fibromyalgia. Shingles. HOME CARE INSTRUCTIONS Avoid overtiring physical activity. Try not to strain or perform activities that cause pain. This includes any activities using your chest or your abdominal and side muscles, especially if heavy weights are used. Put ice on the sore area. Put ice in a plastic bag. Place a towel between your skin and the bag. Leave the ice on for 15-20 minutes per hour while awake for the first 2 days. Only take naqr-sdx-[id number] or prescription medicines for pain, discomfort , or fever as directed by your caregiver. SEEK IMMEDIATE MEDICAL CARE IF: Your pain increases, or you are very uncomfortable. You have a fever. Your chest pain becomes worse. You have new, unexplained symptoms. You have nausea or vomiting. You feel sweaty or lightheaded. You have a cough with phlegm (sputum), or you cough up blood. MAKE SURE YOU: Understand these instructions. Will watch your condition. Will get help right away if you are not doing well or get worse. This information is not intended to replace advice given to you by your health care provider. Make sure you discuss any questions you have with your health care provider. Document Released: 01/26/2006 Document Revised: 04/19/2012 Document Reviewed: [facility] Patient Information 2015 [facility]. Emergency Medicine Acute Bronchitis Bronchitis is inflammation of the airways that extend from the windpipe into the lungs (bronchi). The inflammation often causes mucus to develop. This leads to a cough, which is the most common symptom of bronchitis. In acute bronchitis, the condition usually develops suddenly and goes away over time, usually in a couple weeks. Smoking, allergies, and asthma can make bronchitis worse. Repeated episodes of bronchitis may cause further lung problems. CAUSES Acute bronchitis is most often caused by the same virus that causes a cold. The virus can spread from person to person (contagious) through coughing, sneezing, and touching contaminated objects. SIGNS AND SYMPTOMS Cough. Fever. Coughing up mucus. Body aches. Chest congestion. Chills. Shortness of breath. Sore throat. DIAGNOSIS Acute bronchitis is usually diagnosed through a physical exam. Your health care provider will also ask you questions about your medical history. Tests, such as chest X-rays, are sometimes done to rule out other conditions. TREATMENT Acute bronchitis usually goes away in a couple weeks. Oftentimes, no medical treatment is necessary. Medicines are sometimes given for relief of fever or cough. Antibiotic medicines are usually not needed but may be prescribed in certain situations. In some cases, an inhaler may be recommended to help reduce shortness of breath and control the cough. A cool mist vaporizer may also be used to help thin bronchial secretions and make it easier to clear the chest. HOME CARE INSTRUCTIONS Get plenty of rest. Drink enough fluids to keep your urine clear or pale yellow (unless you have a medical condition that requires fluid restriction). Increasing fluids may help thin your respiratory secretions (sputum) and reduce chest congestion, and it will prevent dehydration. Take medicines only as directed by your health care provider. If you were prescribed an antibiotic medicine, finish it all even if you start to feel better. Avoid smoking and secondhand smoke. Exposure to cigarette smoke or irritating chemicals will make bronchitis worse. If you are a smoker, consider using nicotine gum or skin patches to help control withdrawal symptoms. Quitting smoking will help your lungs heal faster. Reduce the chances of another bout of acute bronchitis by washing your hands frequently, avoiding people with cold symptoms, and trying not to touch your hands to your mouth, nose, or eyes. Keep all follow-up visits as directed by your health care provider. SEEK MEDICAL CARE IF: Your symptoms do not improve after 1 week of treatment. SEEK IMMEDIATE MEDICAL CARE IF: You develop an increased fever or chills. You have chest pain. You have severe shortness of breath. You have bloody sputum. You develop dehydration. You faint or repeatedly feel like you are going to pass out. You develop repeated vomiting. You develop a severe headache. MAKE SURE YOU: Understand these instructions. Will watch your condition. Will get help right away if you are not doing well or get worse. This information is not intended to replace advice given to you by your health care provider. Make sure you discuss any questions you have with your health care provider. Document Released: 03/05/2005 Document Revised: 06/12/2014 Document Reviewed: [facility] Patient Information 2015 [place] [employer]. No follow up information was provided. Extracted from: Title: Office Visit Note- Author: Mary Zaldivar PA-C Date: 06/07/15 Bronchitis Assessment/Plan Acute bronchitis She does continue with a cough, but clinically, appears to be okay. I don't see any infiltrates on her CXR (formal read is still pending). Will try to treat pt with a course of prednisone to see if this helps. She is to continue with the albuterol inhaler as well. Cough syrup Rx below. Pt advised that if she is still having the cough, we should set her up with pulmonology for further testing, as she historically has had respiratory issues that take months to resolve. Ordered: Office Visit Level 4 Est 07871 Chest pain ECG was normal. Chest is tender on palpation.I believe this is justcostochondritis. See below. Ordered: Comprehensive Metabolic Panel Office Visit Level 4 Est 37485 XR Chest 2 Views Costochondritis Will treat with prednisone asabove. Ordered: Office Visit Level 4 Est 01947 Cough Faxed Prometh/codeine to pharmacyfor the cough. Warned about drowsiness with medication. Ordered: CBC w/ Differential Comprehensive Metabolic Panel Office Visit Level 4 Est 75815 XR Chest 2 Views Orders: predniSONE, 40 mg 2 tabs, Oral, Daily, X 5 days, # 10 tabs, 0 Refill(s ), Pharmacy: [facility], 2 tabs Oral Daily,x5 days promethazine-codeine, 5 mL, Oral, q6hr, as needed for cough, Fax to [facility], # 120 mL, 0 Refill(s)
--- OUTSIDE RECORDS SUMMARY | 2016-06-02 06:18 | XMS REPORT | Continuity of Care Document ---
Author Author Juan Adair MD [facility] Address [address] [place] [address] [place] [address] Phone Care Team Providers Care Human Machine Interface Engineer Name Role Phone Juan Adair PP Unavailable Payers Payer name Insurance type Covered libertarian ID Authorization(s) Unknown Problems Condition Effective Dates (start - stop) Clinical Status Headache - *Acute Sinusitis - *Acute Hypertriglyceridemia - *Chronic Depression - Acute Exacerbation Depression - Acute Exacerbation Generalized headaches - *Acute 311 - DEPRESSIVE DISORDER NEC - BENIGN HYPERTENSION - Upper Respiratory Infection, Acute - *Acute Sinusitis, Acute - *Acute Urinary tract infection - *Acute Sinusitis, Acute - *Acute Depression - Chronic Hypertension, Benign - Chronic Family History Family Member Diagnosis Age At Onset Status Mother (Unknown) Hypertension Yes Mother (Unknown) Diabetes Yes Mother (Unknown) Hyperlipidemia Yes Social History Social History Element Description Quantity Unknown Allergies, Adverse Reactions, Alerts Substance Reaction Severity Status LISINOPRIL Unknown PAROXETINE HCL Unknown Medications Medication Instructions Dosage Effective Dates (start - stop) Status Flonase 50 mcg/actuation nasal spray,suspension inhale 1 spray (50MCG) by intranasal route 2 times every day in each nostril 50 MCG - Active amoxicillin 500 mg tablet take 2 Tablet (1000MG) by oral route 2 times every day 1000 MG - No Longer Active venlafaxine ER 75 mg capsule,extended release 24 hr take 1 capsule (75MG) by oral route every day 75 MG - Active prednisone 10 mg tablet take 6 tablets on the first day and then decrease by one tablet daily until gone. - Active Immunizations Vaccine Date Status Comments Flu (split) (3 yrs or older) completed Tdap completed - Completed reason: previously given pneumo (2 yrs or older) (PPV23) completed - Completed reason: previously given Results Test Name Date and Time Measure Units Reference Range Abnormal Flag Comments Unknown Vital Signs Date / Time: Height Weight Pulse Rate Blood Pressure Temperature /15:22:00 62.60 in 217.50 lbs 112 /min 132/94 mm[Hg] 99.5 F Procedures Procedure Date Unknown Encounters Encounter [place] [facility] [place] [facility] [place] [facility] [place] [facility] [place] [facility] [place] [facility] [place] [facility] [place] [facility] [place] [facility] [place] Directives Directive Effective Date Unknown
--- OUTSIDE RECORDS SUMMARY | 2016-06-02 06:18 | XMS REPORT | Referral Summary ---
Author Author [facility], [facility] Care Organization [facility] Address Unknown Phone Unavailable Care Team Providers Care Teacher Early Childhood Development Name Role Phone Akbar Drummond Primary Care Physician [phone] Encounter VC Date(s): 11/15/15 - 11/15/15 [facility] [address] [place] [address] Discharge Disposition: 01-Home or Self Care Attending Physician: Gentry Buckner PA-C Admitting Physician: Gentry Buckner PA-C Vital Signs Most recent to 1 oldest [Reference Range]: Temperature Tympanic 37.1 degC [36.6-38.1 degC] (11/15/15 2:36 PM) Peripheral Pulse 86 bpm Rate [60-100 bpm] (11/15/15 2:36 PM) Blood Pressure 130/80 mmHg [90-140/60-90 mmHg] (11/15/15 2:36 PM) SpO2 98 % (11/15/15 2:36 PM) Problem List Condition Effective Dates Status Health Status Informant Acute bacterial Active bronchitis(Confirmed ) Acute bacterial Active sinusitis(Confirmed) Benign essential Active hypertension(Confirm ed) Esotropia(Confirmed) Active high Resolved cholesterol(Confirme d) Hyperlipidemia(Confi Active rmed) hypertension(Confirm Resolved ed) Anxiety and Active depression(Confirmed ) Obesity(Confirmed) Active patient Patellofemoral Active syndrome(Confirmed) Allergies, Adverse Reactions, Alerts Substance Reaction Severity Status lisinopril Active PARoxetine Hydrochloride Active Medications codeine-guaiFENesin 10 mg-100 mg/5 mL oral syrup 5 mL, Oral, Bedtime (once a day), as needed for cough and congestion, May use every 6 hours if not working, going to be at home and not operating heavy machinery/driving, X 7 days, # 35 mL, 0 Refill(s) Start Date: 11/15/15 Stop Date: 11/22/15 Status: Ordered Multiple Vitamins oral tablet, chewable [...] Smoking Status Never smoker Assessment and Plan No data available for this section
--- OUTSIDE RECORDS SUMMARY | 2016-06-02 06:18 | XMS REPORT | Referral Summary ---
Author Author [facility], [facility] Organization [facility] Address Unknown Phone Unavailable Care Team Providers Care Dry Transfer Man Name Role Phone Mariaelena Manjarrez Primary Care Physician [phone] Encounter Date(s): 01/19/15 - 01/19/15 [facility], Family [address] [place] [id number] Discharge Diagnosis: Acute bacterial sinusitis Discharge Diagnosis: Acute bacterial bronchitis Discharge Disposition: 01-Home or Self Care Attending Physician: Georgina Walton APRN Admitting Physician: Georgina Walton APRN Vital Signs Most recent to 1 oldest [Reference Range]: Temperature Tympanic 37.5 degC [36.6-38.1 degC] (01/19/15 9:10 AM) Peripheral Pulse 90 bpm Rate [60-100 bpm] (01/19/15 9:10 AM) Blood Pressure 116/78 mmHg [90-140/60-90 mmHg] (01/19/15 9:10 AM) SpO2 96 % (01/19/15 9:10 AM) Problem List Condition Effective Dates Status [...] MOUTH TWICE DAILY, # 60 tabs, eRx: [id number], TAKE ONE TABLET BY MOUTH TWICE DAILY Start Date: 12/04/14 Status: Ordered Ceftin 500 mg oral tablet 500 mg 1 tabs, Oral, BID, X 14 days, # 28 tabs, 0 Refill(s), Pharmacy: [id number], 1 tabs Oral BID,x14 days Start Date: 01/19/15 Stop Date: 02/02/15 Status: Ordered Multiple Vitamins oral tablet, chewable 1 tabs, Chewed, Daily, # 100 tabs, 0 Refill(s) Start Date: 08/23/14 Status: Ordered omeprazole 20 mg oral delayed release tablet 20 mg 1 tabs, Oral, Daily, # 30 tabs, 1 Refill(s), Pharmacy: [id number], 1 tabs Oral Daily,x30 days Start Date: 08/30/14 Stop Date: 10/29/14 Status: Ordered Promethazine with Codeine 6.25 mg-10 mg/5 mL oral syrup 5 mL, Oral, q6hr, as needed for cough, may cause drowsiness, X 10 days, # 200 mL , 0 Refill(s) Start Date: 01/19/15 Stop Date: 01/29/15 Status: Ordered Results No data available for this section Immunizations Vaccine Date Refusal Reason influenza virus vaccine, inactivated1 11/29/13 influenza virus vaccine, live 01/14/13 pneumococcal 23-polyvalent vaccine 11/22/10 tetanus/diphtheria/pertussis, acel(Tdap) 03/30/09 1Result Comment: [11/29/2013] see scanned document Procedures No data available for this section Social History Social History Type Response Smoking Status Never smoker Assessment and Plan Extracted from: Title: Office Visit Note-recurrent Author: Georgina Walton GEM CUTTER Date: 01/19/15 sinusitis Assessment/Plan Acute bacterial bronchitis Ceftin 500 mg one by mouth twice a day 2 weeks. Increase fluid intake. Enc good handwashing. Recommend OTC mucinex per package instruction. Recommend salt water gargles, Chloraseptic spray, throat lozenges for sore throat as needed. Saline nasal rinses may be beneficial 2 x a day. Promethazine with codeine 1 teaspoon every 6 hours as needed for cough. May cause drowsiness. Do not take and drive. Recommend OTC Tylenol and/or Ibuprofen per package [...] and that followup is of vital importance. Ordered: Office Visit Level 3 Est [id number] Acute bacterial sinusitis Discussed with patient if symptoms fail to improve after the second round of antibioticswould like to consider doing a CT scan of the sinusesto rule out other etiologies. Discussed need to find new PCP provider. She would like to establish care with Dr. Manjarrez. Encouraged her to make that appointment. Ordered: Office Visit Level 3 Est [id number] Orders: cefuroxime, 500 mg 1 tabs, Oral, BID, X 14 days, # 28 tabs, 0 Refill(s ), Pharmacy: [id number], 1 tabs Oral BID,x14 days promethazine-codeine, 5 mL, Oral, q6hr, as needed for cough, may cause drowsiness, X 10 days, # 200 mL, 0 Refill(s)
--- OUTSIDE RECORDS SUMMARY | 2016-06-02 06:18 | XMS REPORT | Continuity of Care Document ---
Author Author Ankit Zamudio MA [facility] Address Unknown Phone Unavailable Care Team Providers Care House Wrecker Name Role Phone Juan Adair PP Unavailable Payers Payer name Insurance type Covered alliance party ID Authorization(s) Unknown Problems Condition Effective Dates (start - stop) Clinical Status Upper Respiratory Infection, Acute - *Acute Depression - Acute Exacerbation Depression - Acute Exacerbation 311 - DEPRESSIVE DISORDER NEC - BENIGN HYPERTENSION - Sinusitis, Acute - *Acute Urinary tract infection [...] Dosage Effective Dates (start - stop) Status venlafaxine ER 75 mg capsule,extended release 24 hr take 1 capsule (75MG) by oral route every day 75 MG - Active Immunizations Vaccine Date Status Comments Flu (split) (3 yrs or older) completed Tdap completed - Completed reason: previously given pneumo (2 yrs or older) (PPV23) completed - Completed reason: previously given Results Test Name Date and Time Measure Units Reference Range Abnormal Flag Comments Unknown Vital Signs Date / Time: Height Weight Pulse Rate Blood Pressure Temperature /14:33:00 62.60 in 214.40 lbs 84 /min 124/78 mm[Hg] 99.8 F Procedures Procedure Date Unknown Encounters Encounter Location Date Patient Visit [facility] Patient Visit [facility] Patient Visit [facility] Patient Visit [facility] Patient Visit [facility] Patient Visit [facility] Patient Visit [facility] Advance Directives Directive Effective Date Unknown
--- OUTSIDE RECORDS SUMMARY | 2016-06-02 06:18 | XMS REPORT | Continuity of Care Document ---
Author Author Juan Adair MD [facility] Address [address] [place] [address] [place] [address] Phone Care Team Providers Care Television Writer Name Role Phone Juan Adair PP Unavailable Payers Payer name Insurance type Covered green party ID Authorization(s) Unknown Problems Condition Effective Dates (start - stop) Clinical Status Generalized headaches - *Acute Depression - Acute Exacerbation Depression - Acute Exacerbation Headache - *Acute Sinusitis - *Acute Hypertriglyceridemia - *Chronic 311 - DEPRESSIVE DISORDER NEC - BENIGN [...] Dosage Effective Dates (start - stop) Status prednisone 10 mg tablet take 6 tablets on the first day and then decrease by one tablet daily until gone. - Active venlafaxine ER 75 mg capsule,extended release 24 hr take 1 capsule (75MG) by oral route every day 75 MG - Active Flonase 50 mcg/actuation nasal spray,suspension inhale 1 spray (50MCG) by intranasal route 2 times every day in each nostril 50 MCG - Active Immunizations Vaccine Date Status Comments Flu (split) (3 yrs or older) completed Tdap completed - Completed reason: previously given pneumo (2 yrs or older) (PPV23) completed - Completed reason: previously given Results Test Name Date and Time Measure Units Reference Range Abnormal Flag Comments Panel Description: CBC WBC 11:28:00 5.6 K/uL 4.8-10.8 RBC 11:28:00 4.44 M/uL 4.00-5.20 HGB 11:28:00 13.0 g/dl 12.0-16.0 HCT 11:28:00 39.4 % 37.0-47.0 MCV 11:28:00 88.7 fL 82.0-99.0 MCH 11:28:00 29.3 pg 27.0-32.0 MCHC 11:28:00 33.0 g/dL 32.0-36.0 RDW 11:28:00 13.7 % 11.5-14.5 MPV 11:28:00 13.6 fL 8.8-14.8 Platelet Count 11:28:00 200 K/uL 150-400 Immature Granulocytes 11:28:00 0.2 % 0.0-1.0 Absolute Neutrophils 11:28:00 3.49 THOUS 1.90-7.00 Absolute Lymphocytes 11:28:00 1.54 THOUS 0.80-3.30 Absolute Monocytes 11:28:00 0.38 THOUS 0.30-1.00 Absolute Eosinophils 11:28:00 0.11 THOUS 0.00-0.50 Absolute Basophils 11:28:00 0.05 THOUS 0.00-0.20 Neutrophils 11:28:00 63 % 51-75 Lymphocytes 11:28:00 28 % 20-46 Monocytes 11:28:00 7 % 4-11 Eosinophils 11:28:00 2 % 0-4 Basophils 11:28:00 1 % 0-2 Testing performed at [facility] [address] [place] [address] Director Audience Marketing Faheem Lomeli MD Panel Description: Sedrate Sedimentation Rate 11:28:00 24 mm/hr 0-23 H Testing performed at [facility] [address] [place] [address] Director Audience Marketing Faheem Lomeli MD Panel Description: Chemistry Profile Glucose 11:28:00 89 mg/dL 70-99 BUN 11:28:00 15 mg/dL 7-19 Creatinine 11:28:00 0.81 mg/dL 0.57-1.11 Calcium 11:28:00 9.6 mg/dL 8.9-10.5 Sodium 11:28:00 139 mEq/L 135-144 Potassium 11:28:00 4.2 mEq/L 3.5-5.2 Chloride 11:28:00 108 mEq/L 99-111 CO2 11:28:00 22 mEq/L 22-31 Albumin 11:28:00 4.2 g/dL 3.5-5.0 Bilirubin Total 11:28:00 0.8 mg/dL 0.2-1.2 Alkaline Phosphatase 11:28:00 82 U/L 40-150 Protein 11:28:00 7.4 g/dL 6.4-8.3 ALT (SGPT) 11:28:00 15 U/L 0-55 AST (SGOT) 11:28:00 16 U/L 5-34 Anion Gap 11:28:00 9 3-20 Globulin 11:28:00 3.2 g/dL 1.8-4.0 Testing performed at [facility] [address] [place] [address] Director Audience Marketing Faheem Lomeli MD Panel Description: EGFR-AMS eGFR 11:28:00 >60 mL/min >60 Multiply eGFR results by 1.21 for race.Testing performed at [facility] [address] [facility] [address] Director Audience Marketing Faheem Lomeli MD Vital Signs Date / Time: Height Weight Pulse Rate Blood Pressure Temperature /10:32:00 62.60 in 215.00 lbs 112 /min 132/92 mm[Hg] 98.3 F Procedures Procedure Date Unknown Encounters Encounter Location Date Patient Visit [facility] Patient Visit [facility] Patient Visit [facility] Patient Visit [facility] Patient Visit [facility] Patient Visit [facility] Patient Visit [facility] Patient Visit [facility] Patient Visit [facility] Advance Directives Directive Effective Date Unknown
--- OUTSIDE RECORDS SUMMARY | 2016-06-02 06:18 | XMS REPORT | Referral Summary ---
Author Author [facility] Organization [facility] Address Unknown Phone Unavailable Care Team Providers Care Manager Content Name Role Phone Mariaelena Manjarrez Primary Care Physician [phone] Encounter VC Date(s): 07/26/14 - 07/26/14 [facility] [address] [place] [address] Discharge Disposition: 01-Home or Self Care Attending Physician: Juan Adair MD Admitting Physician: Juan Adair MD Vital Signs Most recent to 1 oldest [Reference Range]: Temperature Tympanic 36.7 degC [36.6-38.1 degC] (07/26/14 9:51 AM) Peripheral Pulse 84 bpm Rate [60-100 bpm] (07/26/14 9:51 AM) Blood Pressure 106/70 mmHg [90-140/60-90 mmHg] (07/26/14 9:51 AM) Problem List Condition Effective Dates Status [...] MOUTH TWICE DAILY, # 60 tabs, eRx: [id number], TAKE ONE TABLET BY MOUTH TWICE DAILY Start Date: 01/29/15 Status: Ordered Multiple Vitamins oral tablet, chewable 1 tabs, Chewed, Daily, # 100 tabs, 0 Refill(s) Start Date: 08/23/14 Status: Ordered omeprazole 20 mg oral delayed release tablet 20 mg 1 tabs, Oral, Daily, # 30 tabs, 1 Refill(s), Pharmacy: [id number], 1 tabs Oral Daily,x30 days [...] Visit Note Author: Juan Adair MD Date: 07/26/14 Assessment/Plan Allergic rhinitis Pleurisy I think you have allergic rhinitis causing the cough and the cough has caused pleurisy. I'm going to placeyou on prednisone and if you are not improved in 7-10 days I wants to follow-up. Orders: predniSONE, See Instructions, Take 6 tabs on day one and then decrease by one tablet daily until gone., # 21 tabs, 0 Refill(s), Pharmacy: [id number], Take 6 tabs on day one and then decrease by one tablet daily until gone.
--- NOTE | 2016-06-02 06:22 | NUR ---
PROVIDER DR. James REDMOND IN ROOM WITH PT.
--- OUTSIDE RECORDS SUMMARY | 2016-06-02 06:27 | XMS REPORT | Continuity of Care Document ---
Author Author [facility] Organization [facility] Address Unknown Phone Unavailable Allergies Medications Problems Procedures Results Encounters ACCT No. Visit Date/Time Discharge Status Pt. Type Provider Facility Loc./Unit Complaint [id number] 04/07/2013 10:32:00 04/07/2013 23 :59:59 CLS Outpatient [id number] 04/01/2013 15:22:00 04/01/2013 23 :59:59 CLS Outpatient [id number] 01/14/2013 14:27:00 01/14/2013 23 :59:59 CLS Outpatient
[2016-06-02] MEDS ORDERED: KETOROLAC 60mg/2ml INJECTION IM ONE (06:30)
--- NOTE | 2016-06-02 06:32 | ERPDOC ---
Departure Disposition Decision Date: Jun 02, 2016 Disposition Decision Time: :29 Disposition: 01 DISCHARGED HOME, SELF-CARE Impression Impression Impression: Primary Impression: Left anterior knee pain Severity: Mild Condition: Improved Seen By: Physician only Referrals: JUAN MANUEL PICKENS MD (Family) 1 Day Patient Instructions: Leg Pain (ED) Problems/Meds/Labs Reviewed?: Yes Medications reviewed and manag: Yes Additional Instructions: 1. Rest, Ice, Elevate 2. Follow with Dr. Pickens 3. Motrin or Tylenol for pain 4. Return to the ER as needed Follow up care ordered?: Yes Mental Status: Alert, Oriented HPI - Lower Extremity General Chief Complaint: Lower Extremity Pain Stated Complaint: PAIN IN BOTH LEGS Time Seen by Provider: 06:18 Source: patient (Patient presents to the ER with Left Anterior Knee pain, which is a chronic complaint for the patient, which has worsened over the past week. Patient was seen by her PCP on Thursday for this complaint, with an X-Ray Obtained. Patient has not been notified of the results. ), other (Patient denies recent trauma and has no other complaints. ) Exam Limitations: no limitations HPI - Lower Extremity Occurred At: home Onset/Timing: Changing over time Duration: 1 week Pain/Severity Scale: Now & Worst: 6/10 Severity: mild Pain/Injury Location: left knee Method of Injury: unknown Modifying Factors/Context: IMPROVES WITH: immobilization, pain medication, rest , WORSE WITH: movement Hx of Similar Symptoms: No Quality: sharpness Allergies: Coded Allergies: lisinopril (Verified Allergy, Unknown, 06/02/16) paroxetine (Verified Allergy, Unknown, 06/02/16) Past History Past Medical History Metabolic: hypertension Hx Echocardiogram: No Psychological: depression Surgical History Denies Surgeries Family History Family PMH: FOUND: other Social History Smoking Status: Never smoker Does patient use chewing tobac: No Second Hand Exposure: No Substance Use Type: does not use Substance last used: prior to arrival Alcohol Intake: none Marital Status: Sexuality: male partner Housing: house Household Members: spouse Advance Directives: Yes Full Code Review of Systems Constitutional Constitutional: DENIES: chills, fever Eyes Lids/Accessories: DENIES: erythema, swelling ENMT Ears: DENIES: erythema, pain Balance: DENIES: ataxia, vertigo Sinuses: DENIES: congestion, rhinorrhea Mouth/Throat: DENIES: sore throat Cardiovascular Cardiac: DENIES: chest pain, dyspnea on exertion, orthopnea Rhythm/Rate: DENIES: tachycardia Pulmonary Respiratory: DENIES: cough, dyspnea, sputum GI Upper Abdomen: DENIES: nausea, pain, vomiting Lower Abdomen: DENIES: constipation, diarrhea, pain General: DENIES: dysuria Musculoskeletal General: joint pain, pain, see HPI, tenderness, DENIES: cramps, joint swelling , weakness Integumentary Skin: DENIES: color change, itching, rash Neurological General: DENIES: ataxia, change in strength, headache, numbness, poor coordination, seizures, syncope, vertigo, weakness Psychiatric Psychiatric: DENIES: anxiety, depression, nervousness Hematologic/Lymphatic Hematologic/Lymphatic: DENIES: anemia Allergic/Immunological Allergic/Immunoligical: DENIES: sneezing All other Systems All Other Systems: Reviewed and Negative Physical Exam General General Nourishment: well nourished, well developed, appears stated age, adult General Body Habitus: well groomed Vitals and Pain First Documented Vital Signs Date Time Temp Pulse Resp B/P Pulse Ox O2 Delivery O2 Flow Rate FiO2 06/02/16 06:16 97.6 88 15 142/76 96 Room Air Weight: Kilograms: Height (feet): 5 Height (inches): 1.00 Triage Pain Scale: RN VS reviewed by Provider: Yes Eyes (brief) Eyes Brief: found: EOMI, PERRL ENMT (brief) ENMT Brief: FOUND: mucosa moist Neck (brief) Neck: FOUND: trachea midline, NOT FOUND: tenderness, tracheal deviation Respiratory (brief) Respiratory: FOUND: clear all mas, equal bilaterally Cardiovascular (brief) Cardiac: FOUND: regular rate, regular rhythm Capillary Refill: <2 sec Pulses: all distal extremities, equal, strong Abdomen (brief) Abdominal Brief: FOUND: bowel normo active x4, soft, NOT FOUND: distended, tender Lymphatic (brief) Lymphatic Brief: NOT FOUND: adenopathy Musculoskeletal (brief) Musculoskeletal Brief: FOUND: other (Bridget's Negative Bilaterally), NOT FOUND: spasm, tenderness Fastrak Knee Knee : Knee: Left Inspection: NOT FOUND: discoloration, erythema, pallor, swelling Palpation: tender med. joint line, warm, NOT FOUND: tender lat. joint line, tender patella Stability: A/P cruciate (intact), MCL intact, NOT FOUND: anterior drawer sign, posterior drawer sign ROM: extension to 180 degrees, flexion to 0 degrees, NOT FOUND: clicking, locking, popping Neuro: patellar tendon reflex ((+2)), soft touch intact, strength ((+5)) Posterior Tibial pulse: 2+ Dorsalis Pedis pulse: 2+ Integumentary (brief) Integumentary Brief: FOUND: pink, warm Neurologic (brief) Neurological Brief: FOUND: CN w/o gross def to obs, gait w/o gross def to obs, motor-no gross deficits, sensory-no gross deficits, NOT FOUND: ataxia Psychiatric (brief) Psychiatric Brief: FOUND: alert, attentive, normal affect, oriented Differential Diagnoses Considering: Cartilage Tear, Contusion, Fracture, Ligament Tear ACL, Ligament Tear PCL, Meniscal Injury, Knee, Sprain, Strain Progress Results/Orders Orders Procedure Category Date Status Time Ketorolac (Toradol) PHA 06/02/16 Complete 06:30 Medications Current ED Medications Ketorolac Tromethamine (Toradol) 60 mg O ONCE IM Last administered on t 06:43; Start 06/02/16 at 06:30; Stop 06/02/16 at 06:31; Status DC Progress Progress Patient refused Repeat X-Ray or Crutches Patient will follow with her PCP, returning to the ER as needed JOE REDMOND DO Jun 02, 2016 06:32
[2016-06-02 06:52] VITALS: BP 140/76; PULSE 72; RESP 14; TEMP 97.6; O2SAT 97
== END 2016-06-02 06:52 | disposition home or self-care (01) ==
LOC: ED 06:14
DX: M25.562 Pain in left knee (principal)
CPT/HCPCS: 96372; 99283; J1885